=== PATIENT | male | born 1965 | race Caucasian/White ===

== ENCOUNTER 2017-05-15 00:58 | Emergency (ER) | payer BC, OTHER ==
[2017-05-15] MEDS ORDERED: Diphtheria,Pertussis(Acell),Tetanus Vaccine 0.5 ML SDV IM ONE (01:10)
[2017-05-15 01:37] VITALS: BP 135/78
--- NOTE | 2017-05-15 01:58 | EDM.PDOC ---
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 He reports he was handling and engine and there was a " yvette on the stack" while he gripped it and it dragged across his glove and cut through the glove down through the right index finger in a horseshoe shape and was relatively superficial and approximated well but was bleeding significantly. On my arrival it was a slow ooze. He denies other injuries or complaints. He reports his tetanus is not up to date. - Related Data Allergies Allergy/AdvReac Type Severity Reaction Status Date / Time ampicillin sodium Allergy Redness Verified 05/15/17 01:01 [From Unasyn] sulbactam sodium Allergy Redness Verified 05/15/17 01:01 [From Unasyn] sulfamethoxazole Allergy Redness Verified 05/15/17 01:01 [From Bactrim] trimethoprim [From Bactrim] Allergy Redness Verified 05/15/17 01:01 Home Meds: Home Meds busPIRone [Buspar] 20 mg PO BID 04/03/16 [History] Esomeprazole Magnesium [Nexium] 20 mg PO DAILY PRN 05/15/17 [History] Gluc 2KCl/Chondr/Alice Hy/Hy Ac [Glucosamine & Chondroitin Cap] 1 each PO TID [History] Vit C/Millan & Celery Ex/Grp E [Tart Millan] 1 each PO BID 05/15/17 [History] Past Medical History HEENT History: Reports: Impaired Vision Other HEENT History: He wears bifocals Cardiovascular History: Reports: None Respiratory History: Reports: Sleep Apnea, Other (See Below) Other Respiratory History: wears cpap at HS Gastrointestinal History: Reports: Cholelithiasis, Colon Polyp, Gastritis, GERD , Hiatal Hernia, PUD Other Gastrointestinal History: Upper gastric versus lower esophageal ulcer, colonic polyps of unknown type Genitourinary History: Reports: None Musculoskeletal History: Reports: Arthritis, Back Pain, Chronic, Gout, Neck Pain , Chronic, Osteoarthritis Neurological History: Reports: Headaches, Chronic, Migraines Psychiatric History: Reports: Addiction, Anxiety, Depression, PTSD Other Psychiatric History: Previous alcohol abuse with refill is a drug use as below, PTSD from service Endocrine/Metabolic History: Reports: Hypothyroidism, Obesity/BMI 30+ Other Endocrine/Metabolic History: Previous hypothyroidism with no current treatment Hematologic History: Reports: None Immunologic History: Reports: None Oncologic (Cancer) History: Reports: None Dermatologic History: Reports: None - Infectious Disease History Infectious Disease History: Reports: Chicken Pox - Past Surgical History Head Surgeries/Procedures: Reports: None HEENT Surgical History: Reports: Oral Surgery Cardiovascular Surgical History: Reports: None GI Surgical History: Reports: Cholecystectomy, Colonoscopy, Polypectomy Male Surgical History: Reports: Circumcision, Other (See Below) Oncologic Surgical History: Reports: None Dermatological Surgical History: Reports: None - Past Imaging History Past Imaging History: Reports: Sleep Study, Stress Testing Social & Family History - Tobacco Use Smoking Status *Q: Never Smoker Years of Tobacco use: 3 Packs/Tins Daily: 2 Used Tobacco, but Quit: Yes Month Tobacco Last Used: Stopped at age 30 Second Hand Smoke Exposure: No - Caffeine Use Caffeine Use: Reports: None - Alcohol Use Days Per Week of Alcohol Use: 0 (No previous DWI, however previous alcohol treatment for abuse last time at age 24) Number of Drinks Per Day: 0 Total Drinks Per Week: 0 - Recreational Drug Use Recreational Drug Use: No Drug Use in Last 12 Months: No Recreational Drug Type: Reports: Marijuana/Hashish (For about 3 years in the with last use at age 24) - Living Situation & Occupation Living situation: Reports: , , with Family Occupation: Employed ED ROS GENERAL - Review of Systems Review Of Systems: ROS reveals no pertinent complaints other than HPI. ED EXAM, SKIN/RASH Exam: See Below Exam Limited By: No Limitations General Appearance: Alert, WD/WN, No Apparent Distress Eye Exam: Bilateral Eye: EOMI, Normal Inspection, PERRL Ears: Normal External Exam, Normal Canal, Hearing Grossly Normal, Normal TMs Nose: Normal Inspection, Normal Mucosa, No Blood Throat/Mouth: Normal Inspection, Normal Lips, Normal Teeth, Normal Gums, Normal Oropharynx, Normal Voice Head: Atraumatic, Normocephalic Neck: Normal Inspection, Supple, Non-Tender, Full Range of Motion. No: Lymphadenopathy (L), Lymphadenopathy (R), Tender Lateral, Tender Midline Respiratory/Chest: No Respiratory Distress, Lungs Clear, Normal Breath Sounds, No Accessory Muscle Use, Chest Non-Tender Cardiovascular: Normal Peripheral Pulses, Regular Rate, Rhythm, No Edema, No Gallop, No Murmur, No Rub Peripheral Pulses: 2+: Radial (L), Radial (R) GI/Abdominal: Normal Bowel Sounds, Soft, Non-Tender, No Organomegaly, No Distention Back Exam: Normal Inspection, Full Range of Motion. No: CVA Tenderness (L), CVA Tenderness (R), Decreased Range of Motion, Paraspinal Tenderness, Vertebral Tenderness Extremities: Normal Inspection, Normal Range of Motion, Non-Tender, No Pedal Edema, Normal Capillary Refill Neurological: Alert, Oriented, CN II-XII Intact, Normal Cognition, Normal Gait, Normal Reflexes, No Motor/Sensory Deficits, Other (GCS 15. No pronator drift of arms. No motor or sensory deficits. No dysmetria. Tone normal. No clonus or spasticity. Babinski absent bilaterally.) Psychiatric: Normal Affect, Normal Mood Skin: Warm, Dry, Normal Color, No Rash, Other (Laceration of right distal ventral and medial finger in a horseshoe shaped laceration of 2 cm in length. Margins approximate well. Slow oozing of blood. No gross contamination. ) Course - Vital Signs Last Recorded V/S: Last Vital Signs Temp 36.3 C 05/15/17 01:28 Pulse 66 05/15/17 01:28 Resp 16 05/15/17 01:28 BP 135/78 05/15/17 01:28 Pulse Ox 95 05/15/17 01:28 - Orders/Labs/Meds Orders: Active Orders 24 hr Category Date Time Status Skin Adhesive [RC] ROUTINE Care 05/15/17 01:20 Active Vaccines to be Administered [RC] PER UNIT ROUTINE Care 05/15/17 01:11 Active Meds: Medications Discontinued Medications Generic Name Dose Route Start Last Admin Trade Name Freq PRN Reason Stop Dose Admin Diphtheria/Tetanus/Acell Pertussis 0.5 ml 05/15/17 01:10 05/15/17 01:23 Adacel IM 05/15/17 01:11 0.5 ml .ONCE ONE Administration Departure - Departure Time of Disposition: 01:58 Disposition: Home, Self-Care 01 Clinical Impression: Laceration of right index finger Qualifiers: Encounter type: initial encounter Damage to nail status: without damage Foreign body presence: without foreign body Qualified Code(s): S61.210A - Laceration without foreign body of right index finger without damage to nail, initial encounter - Discharge Information Referrals: PCP,Unknown [Primary Care Provider] - - My Orders Last 24 Hours: My Active Orders 05/15/17 01:11 Vaccines to be Administered [RC] PER UNIT ROUTINE 05/15/17 01:20 Skin Adhesive [RC] ROUTINE - Assessment/Plan Last 24 Hours: My Active Orders 05/15/17 01:11 Vaccines to be Administered [RC] PER UNIT ROUTINE 05/15/17 01:20 Skin Adhesive [RC] ROUTINE Assessment:: Laceration of right distal ventral and medial index finger, 2 cm. Plan: 1. Wound soaked in 1:2 Betadine to Sterile Saline solution. 2. Wound irrigated with same solution. 3. Dermabond closure performed with good approximation and patient tolerated well. 4. TDaP vaccination updated. 5. Shower, bathe, and swim as normal. Clean with mild soap. 6. If Dermabond had not peeled off in 10 days, may begin to peel off from the corner. 7. 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 8. Follow up with PCP if bleeding or discharge from wound, redness or pain or swelling or warmth of wound, fever > 101 F, mental status changes, or other emergent concerns.
== END 2017-05-15 02:25 | disposition home or self-care (01) ==
LOC: LL.ED 00:58
DX: S61.210A Laceration without foreign body of right index finger without damage to nail, initial encounter (principal); K21.9 Gastro-esophageal reflux disease without esophagitis; M19.90 Unspecified osteoarthritis, unspecified site; G43.909 Migraine, unspecified, not intractable, without status migrainosus; F32.9 Major depressive disorder, single episode, unspecified; F41.9 Anxiety disorder, unspecified; E03.9 Hypothyroidism, unspecified; E66.9 Obesity, unspecified; Z90.49 Acquired absence of other specified parts of digestive tract; Z88.1 Allergy status to other antibiotic agents; Z88.8 Allergy status to other drugs, medicaments and biological substances; Z88.2 Allergy status to sulfonamides; Z68.36 Body mass index [BMI] 36.0-36.9, adult; Z23 Encounter for immunization; W26.8XXA Contact with other sharp object(s), not elsewhere classified, initial encounter
CPT/HCPCS: 12001; 90715; 99282

== ENCOUNTER 2017-05-15 20:21 | Emergency (ER) | payer BC, OTHER ==
[2017-05-15] MEDS ORDERED: Ondansetron 4 MG/2 ML SDV IVPUSH ONE (20:49)
[2017-05-15] MEDS ORDERED: Sodium Chloride 0.9% 1,000 ML IV SCH (21:00)
[2017-05-15 21:17] LABS: CHLORIDE,CL 104 mmol/L (98-107); SODIUM,NA 139 mmol/L (136-145)
--- NOTE | 2017-05-15 21:48 | EDM.PDOC ---
ED HPI GENERAL MEDICAL PROBLEM - General Chief Complaint: General Stated Complaint: feeling hot, sweaty, nausea Time Seen by Provider: 05/15/17 20:50 Source of Information: Reports: Patient History Limitations: Reports: No Limitations - History of Present Illness INITIAL COMMENTS - FREE TEXT/NARRATIVE: The patient presents with complaint of episode of presyncope at home with sudden onset of weakness, lightheadedness, nausea, and diaphoresis. He reports it happened shortly after he and his came home from eating at the local [employer]. He reports he and his have recently switched to a vegetarian diet primarily with tofu, fruits, and vegetables. He reports he had eaten some meat with pizza tonight as he does rarely. He reports symptoms resolved after about 5 minutes of sitting down. He denies chest pain or shortness of breath during the spell or currently. He has a mild headache but denies visual changes , speech difficulty, facial droop, and focal weakness or numbness or paresthesias. He has mild nausea and lightheadedness currently. He denies other symptoms or complaints. He denies a history of TX, arrhythmias, PE, DVT, Stroke , or diabetes. - Related Data Allergies Allergy/AdvReac Type Severity Reaction Status Date / Time ampicillin sodium Allergy Redness Verified 05/15/17 20:23 [From Unasyn] sulbactam sodium Allergy Redness Verified 05/15/17 20:23 [From Unasyn] sulfamethoxazole Allergy Redness Verified 05/15/17 20:23 [From Bactrim] trimethoprim [From Bactrim] Allergy Redness Verified 05/15/17 20:23 Home Meds: Home Meds busPIRone [Buspar] 20 mg PO BID 04/03/16 [History] Esomeprazole Magnesium [Nexium] 20 mg PO DAILY PRN 05/15/17 [History] Gluc 2KCl/Chondr/Alice Hy/Hy Ac [Glucosamine & Chondroitin Cap] 1 each PO TID [History] Vit C/Millan & Celery Ex/Grp E [Tart Millan] 1 each PO BID 05/15/17 [History] Past Medical History HEENT History: Reports: Impaired Vision Other HEENT History: He wears bifocals Cardiovascular History: Reports: None Respiratory History: Reports: Sleep Apnea, Other (See Below) Other Respiratory History: wears cpap at HS Gastrointestinal History: Reports: Cholelithiasis, Colon Polyp, Gastritis, GERD , Hiatal Hernia, PUD Other Gastrointestinal History: Upper gastric versus lower esophageal ulcer, colonic polyps of unknown type Genitourinary History: Reports: None Musculoskeletal History: Reports: Arthritis, Back Pain, Chronic, Gout, Neck Pain , Chronic, Osteoarthritis Neurological History: Reports: Headaches, Chronic, Migraines Psychiatric History: Reports: Addiction, Anxiety, Depression, PTSD Other Psychiatric History: Previous alcohol abuse with refill is a drug use as below, PTSD from service Endocrine/Metabolic History: Reports: Hypothyroidism, Obesity/BMI 30+ Other Endocrine/Metabolic History: Previous hypothyroidism with no current treatment Hematologic History: Reports: None Immunologic History: Reports: None Oncologic (Cancer) History: Reports: None Dermatologic History: Reports: None - Infectious Disease History Infectious Disease History: Reports: Chicken Pox - Past Surgical History Head Surgeries/Procedures: Reports: None HEENT Surgical History: Reports: Oral Surgery Cardiovascular Surgical History: Reports: None GI Surgical History: Reports: Cholecystectomy, Colonoscopy, Polypectomy Male Surgical History: Reports: Circumcision, Other (See Below) Oncologic Surgical History: Reports: None Dermatological Surgical History: Reports: None - Past Imaging History Past Imaging History: Reports: Sleep Study, Stress Testing Social & Family History - Tobacco Use Smoking Status *Q: Never Smoker Years of Tobacco use: 3 Packs/Tins Daily: 2 Used Tobacco, but Quit: Yes Month Tobacco Last Used: Stopped at age 30 Second Hand Smoke Exposure: No - Caffeine Use Caffeine Use: Reports: None - Alcohol Use Days Per Week of Alcohol Use: 0 (No previous DWI, however previous alcohol treatment for abuse last time at age 24) Number of Drinks Per Day: 0 Total Drinks Per Week: 0 - Recreational Drug Use Recreational Drug Use: No Drug Use in Last 12 Months: No Recreational Drug Type: Reports: Marijuana/Hashish (For about 3 years in the with last use at age 24) - Living Situation & Occupation Living situation: Reports: , , with Family Occupation: Employed ED ROS GENERAL - Review of Systems Review Of Systems: ROS reveals no pertinent complaints other than HPI. Constitutional: Reports: Weakness (Mild and generalized, improved.), Diaphoresis (Mild, improved. ) HEENT: Reports: No Symptoms Respiratory: Reports: No Symptoms Cardiovascular: Reports: Lightheadedness (Mild, currently improved.). Denies: Chest Pain, Dyspnea on Exertion, Edema, Orthopnea, Palpitations, Syncope Endocrine: Reports: No Symptoms GI/Abdominal: Reports: Nausea (Mild and improved currently.). Denies: Diarrhea , Hematemesis, Hematochezia, Vomiting : Reports: No Symptoms Musculoskeletal: Reports: No Symptoms Skin: Reports: No Symptoms Neurological: Reports: Headache (Mild.). Denies: Confusion, Dizziness, Numbness , Paresthesia, Seizure, Syncope, Tremors, Trouble Speaking, Difficulty Walking, Weakness, Change in Speech, Gait Disturbance Psychiatric: Reports: No Symptoms Hematologic/Lymphatic: Reports: No Symptoms Immunologic: Reports: No Symptoms ED EXAM, GENERAL - Physical Exam Exam: See Below Exam Limited By: No Limitations General Appearance: Alert, WD/WN, No Apparent Distress Eye Exam: Bilateral Eye: EOMI, Normal Inspection, PERRL Ears: Normal External Exam, Normal Canal, Hearing Grossly Normal, Normal TMs Ear Exam: Bilateral Ear: Auricle Normal, Canal Normal, TM normal Nose: Normal Inspection, Normal Mucosa, No Blood Throat/Mouth: Normal Inspection, Normal Lips, Normal Teeth, Normal Gums, Normal Oropharynx Head: Atraumatic, Normocephalic Neck: Normal Inspection, Supple, Non-Tender. No: Lymphadenopathy (L), Lymphadenopathy (R), Tender Lateral, Tender Midline Respiratory/Chest: No Respiratory Distress, Lungs Clear, Normal Breath Sounds, No Accessory Muscle Use, Chest Non-Tender Cardiovascular: Normal Peripheral Pulses, Regular Rate, Rhythm, No Edema, No Gallop, No Murmur, No Rub Peripheral Pulses: 2+: Radial (L), Radial (R), Dorsalis Pedis (L), Dorsalis Pedis (R) GI/Abdominal: Normal Bowel Sounds, Soft, Non-Tender, No Distention Back Exam: Normal Inspection, Full Range of Motion. No: CVA Tenderness (L), CVA Tenderness (R), Paraspinal Tenderness, Vertebral Tenderness Extremities: Normal Inspection, Normal Range of Motion, Non-Tender, No Pedal Edema, Normal Capillary Refill. No: Pedal Edema, Derek's Sign, Leg Pain Neurological: Alert, Oriented, CN II-XII Intact, Normal Cognition, Normal Gait, Normal Reflexes, No Motor/Sensory Deficits, Other (No pronator drift of arms. No dysmetria. Tone normal. No clonus or spasticity. Babinski absent in bilateral lower extremities.). No: Confused Psychiatric: Normal Affect, Normal Mood Skin Exam: Warm, Dry, Intact, Normal Color, No Rash Lymphatic: No Adenopathy EKG INTERPRETATION EKG Date: 05/15/17 Rhythm: Other (Sinus bradycardia) Rate (Beats/Min): 59 [place]: Normal P-Wave: Present QRS: Normal ST-T: Normal QT: Normal Comparison: NA - No Prior EKG (No ST Elevation or evidence of ischemia.) Course - Vital Signs Last Recorded V/S: Last Vital Signs Temp 36.6 C 05/15/17 22:00 Pulse 59 L 05/15/17 22:00 Resp 16 05/15/17 22:00 BP 119/62 05/15/17 22:00 Pulse Ox 95 05/15/17 22:00 - Orders/Labs/Meds Orders: Active Orders 24 hr Category Date Time Status EKG Documentation Completion [RC] ASDIRECTED Care 05/15/17 20:36 Active Peripheral IV Care [RC] . DIRECTED Care 05/15/17 22:24 Active Sodium Chloride 0.9% [Normal Saline] 1,000 ml Med 05/15/17 21:00 Active IV ASDIRECTED Sodium Chloride 0.9% [Normal Saline] 250 ml Med 05/15/17 22:30 Active IV ASDIRECTED Sodium Chloride 0.9% [Saline Flush] Med 05/15/17 22:24 Active 10 ml FLUSH ASDIRECTED PRN Peripheral IV Insertion Adult [OM.PC] Routine Oth 05/15/17 21:00 Ordered EKG 12 Lead [EK] Routine Ther 05/15/17 20:32 Ordered Medication Orders Sodium Chloride (Normal Saline) 1,000 mls @ 999 mls/hr IV ASDIRECTED JAMILA Last Admin: 05/15/17 21:10 Dose: 999 mls/hr Sodium Chloride (Normal Saline) 250 mls @ 100 mls/hr IV ASDIRECTED JAMILA Last Admin: 05/15/17 22:21 Dose: 100 mls/hr Sodium Chloride (Saline Flush) 10 ml FLUSH ASDIRECTED PRN PRN Reason: Keep Vein Open Labs: Laboratory Tests 05/15/17 05/15/17 05/15/17 Range/Units 20:35 20:35 20:50 WBC 5.4 (4.0-10.2) K/uL RBC 4.24 L (4.33-5.41) M/uL Hgb 12.9 L (13.1-16.8) g/dL Hct 38.4 L (39.0-49.0) % MCV 90.6 (84.0-98.0) fL MCH 30.4 (28.2-33.3) pg MCHC 33.6 (31.7-36.0) g/dL RDW 12.5 (11.2-14.1) % Plt Count 207 (150-350) K/uL Neut % (Auto) 51.9 (45.0-80.0) % Lymph % (Auto) 32.3 (10.0-50.0) % Boyle % (Auto) 8.4 (2.0-14.0) % Eos % (Auto) 6.5 H (0.0-5.0) % Baso % (Auto) 0.9 (0.0-2.0) % Neut # (Auto) 2.78 (1.40-7.00) K/uL Lymph # (Auto) 1.73 (0.50-3.50) K/uL Boyle # (Auto) 0.45 (0.00-1.00) K/uL Eos # (Auto) 0.35 (0.00-0.50) K/uL Baso # (Auto) 0.05 (0.00-0.20) K/uL Sodium 139 (136-145) mmol/L Potassium 4.5 (3.5-5.1) mmol/L Chloride 104 (98-107) mmol/L Carbon Dioxide 29.4 (21.0-32.0) mmol/L BUN 23 H (7-18) mg/dL Creatinine 1.09 (0.51-1.17) mg/dL Est Cr Clr Drug Dosing TNP Estimated GFR (MDRD) > 60 mL/min Glucose 91 (74-106) mg/dL Calcium 8.7 (8.5-10.1) mg/dL Total Bilirubin 0.5 (0.2-1.0) mg/dL AST 22 (15-37) U/L ALT 37 (12-78) U/L Alkaline Phosphatase 82 (46-116) IU/L Creatine Kinase 250 (26-308) U/L Creatine Kinase Index 2.0 (0.0-2.5) % CK-MB (CK-2) 5.10 H* (0.00-3.60) ng/mL Troponin I 0.000 (0.000-0.056) ng/mL Total Protein 7.6 (6.4-8.2) g/dL Albumin 4.1 (3.4-5.0) g/dL Specimen Type Urincc Urine Color Yellow Urine Appearance Clear Urine pH 5.5 (5.0-9.0) Ur Specific [place] >= 1.030 (1.005-1.030) Urine Protein Negative (NEGATIVE) mg/dL Urine Glucose (UA) Negative (NEGATIVE) mg/dL Urine Ketones Negative (NEGATIVE) mg/dL Urine Occult Blood Negative (NEGATIVE) Urine Nitrite Negative (NEGATIVE) Urine Bilirubin Negative (NEGATIVE) Urine Urobilinogen 1.0 (0.2-1.0) E.U./dL Ur Leukocyte Esterase Negative (NEGATIVE) Urine RBC 0-5 /HPF Urine WBC 0-5 /HPF Ur Epithelial Cells Rare /LPF Urine Bacteria Occasional (NONE TO FEW) /HPF Urine Mucus Few H (NEGATIVE) /LPF 05/15/ Range/Units 23:35 WBC (4.0-10.2) K/uL RBC (4.33-5.41) M/uL Hgb (13.1-16.8) g/dL Hct (39.0-49.0) % MCV (84.0-98.0) fL MCH (28.2-33.3) pg MCHC (31.7-36.0) g/dL RDW (11.2-14.1) % Plt Count (150-350) K/uL Neut % (Auto) (45.0-80.0) % Lymph % (Auto) (10.0-50.0) % Boyle % (Auto) (2.0-14.0) % Eos % (Auto) (0.0-5.0) % Baso % (Auto) (0.0-2.0) % Neut # (Auto) (1.40-7.00) K/uL Lymph # (Auto) (0.50-3.50) K/uL Boyle # (Auto) (0.00-1.00) K/uL Eos # (Auto) (0.00-0.50) K/uL Baso # (Auto) (0.00-0.20) K/uL Sodium (136-145) mmol/L Potassium (3.5-5.1) mmol/L Chloride (98-107) mmol/L Carbon Dioxide (21.0-32.0) mmol/L BUN (7-18) mg/dL Creatinine (0.51-1.17) mg/dL Est Cr Clr Drug Dosing Estimated GFR (MDRD) mL/min Glucose (74-106) mg/dL Calcium (8.5-10.1) mg/dL Total Bilirubin (0.2-1.0) mg/dL AST (15-37) U/L ALT (12-78) U/L Alkaline Phosphatase (46-116) IU/L Creatine Kinase 232 (26-308) U/L Creatine Kinase Index 2.0 (0.0-2.5) % CK-MB (CK-2) 4.60 H* (0.00-3.60) ng/mL Troponin I 0.000 (0.000-0.056) ng/mL Total Protein (6.4-8.2) g/dL Albumin (3.4-5.0) g/dL Specimen Type Urine Color Urine Appearance Urine pH (5.0-9.0) Ur Specific [place] (1.005-1.030) Urine Protein (NEGATIVE) mg/dL Urine Glucose (UA) (NEGATIVE) mg/dL Urine Ketones (NEGATIVE) mg/dL Urine Occult Blood (NEGATIVE) Urine Nitrite (NEGATIVE) Urine Bilirubin (NEGATIVE) Urine Urobilinogen (0.2-1.0) E.U./dL Ur Leukocyte Esterase (NEGATIVE) Urine RBC /HPF Urine WBC /HPF Ur Epithelial Cells /LPF Urine Bacteria (NONE TO FEW) /HPF Urine Mucus (NEGATIVE) /LPF Meds: Medications Generic Name Dose Route Start Last Admin Trade Name Freq PRN Reason Stop Dose Admin Sodium Chloride 1,000 mls @ 999 mls/hr 05/15/17 21:00 05/15/17 21:10 Normal Saline IV 999 mls/hr ASDIRECTED JAMILA Administration Sodium Chloride 250 mls @ 100 mls/hr 05/15/17 22:30 05/15/17 22:21 Normal Saline IV 100 mls/hr ASDIRECTED JAMILA Administration Sodium Chloride 10 ml 05/15/17 22:24 Saline Flush FLUSH ASDIRECTED PRN Keep Vein Open Discontinued Medications Generic Name Dose Route Start Last Admin Trade Name No PRN Reason Stop Dose Admin Ondansetron HCl 4 mg 05/15/17 20:49 05/15/17 21:10 Zofran IVPUSH 05/15/17 20:50 4 mg ONETIME ONE Administration Departure - Departure Time of Disposition: 00:15 Disposition: Home, Self-Care 01 Clinical Impression: Near syncope, Dehydration, moderate - Discharge Information Instructions: Near-Syncope, [id number], Dehydration, Adult, [id number], Syncope, [id number] Referrals: Regla Laureano NP [Primary Care Provider] - Forms: ED Department Discharge Additional Instructions: 1. Serial cardiac enzymes performed and negative for TX and no chest pain or SOB during ER stay. 2. Explained to patient differential includes dehydration, early viral gastroenteritis or viral prodrome, etc. Feel cardiac etiology unlikely. 3. Zofran 4 mg IV in ER. 4. NS 1 L bolus. 5. Patient felt improved nausea and weakness and lightheadedness prior to discharge. 6. OTC acetaminophen 500-1,000 mg or ibuprofen 400-800 mg every 6 hours as needed for headache, fever, or discomfort. 7. Increase fluid intake of water and electrolyte containing fluids such as Gatorade and Powerade. Recommend at least 15 cups (3.7 Liters) of water daily. 8. Follow up with PCP next week for next available for near syncope and general health maintenance and prevention. 9. Return to ER with refractory chest pain, shortness of breath, refractory vomiting or diarrhea, blood in vomit or diarrhea, visual changes, speech difficulty, facial droop, focal weakness or numbness or tingling, mental status changes, fever > 101 F not responsive to acetaminophen or ibuprofen, or other emergent concerns. - My Orders Last 24 Hours: My Active Orders 05/15/17 20:32 EKG 12 Lead [EK] Routine 05/15/17 20:36 EKG Documentation Completion [RC] ASDIRECTED 05/15/17 21:00 Sodium Chloride 0.9% [Normal Saline] 1,000 ml IV ASDIRECTED Peripheral IV Insertion Adult [OM.PC] Routine 05/15/17 22:24 Peripheral IV Care [RC] . DIRECTED Sodium Chloride 0.9% [Saline Flush] 10 ml FLUSH ASDIRECTED PRN 05/15/17 22:30 Sodium Chloride 0.9% [Normal Saline] 250 ml IV ASDIRECTED - Assessment/Plan Last 24 Hours: My Active Orders 05/15/17 20:32 EKG 12 Lead [EK] Routine 05/15/17 20:36 EKG Documentation Completion [RC] ASDIRECTED 05/15/17 21:00 Sodium Chloride 0.9% [Normal Saline] 1,000 ml IV ASDIRECTED Peripheral IV Insertion Adult [OM.PC] Routine 05/15/17 22:24 Peripheral IV Care [RC] . DIRECTED Sodium Chloride 0.9% [Saline Flush] 10 ml FLUSH ASDIRECTED PRN 05/15/17 22:30 Sodium Chloride 0.9% [Normal Saline] 250 ml IV ASDIRECTED Assessment:: Near Syncope. Dehydration, moderate. Plan: 1. Serial cardiac enzymes performed and negative for TX and no chest pain or SOB during ER stay. 2. Explained to patient differential includes dehydration, early viral gastroenteritis or viral prodrome, etc. Feel cardiac etiology unlikely. 3. Zofran 4 mg IV in ER. 4. NS 1 L bolus. 5. Patient felt improved nausea and weakness and lightheadedness prior to discharge. 6. OTC acetaminophen 500-1,000 mg or ibuprofen 400-800 mg every 6 hours as needed for headache, fever, or discomfort. 7. Increase fluid intake of water and electrolyte containing fluids such as Gatorade and Powerade. Recommend at least 15 cups (3.7 Liters) of water daily. 8. Follow up with PCP next week for next available for near syncope and general health maintenance and prevention. 9. Return to ER with refractory chest pain, shortness of breath, refractory vomiting or diarrhea, blood in vomit or diarrhea, visual changes, speech difficulty, facial droop, focal weakness or numbness or tingling, mental status changes, fever > 101 F not responsive to acetaminophen or ibuprofen, or other emergent concerns.
[2017-05-15 22:07] VITALS: BP 119/62
[2017-05-15] MEDS ORDERED: Sodium Chloride 0.9% 10 ML Syringe FLUSH PRN (22:24)
[2017-05-15] MEDS ORDERED: Sodium Chloride 0.9% 250 ML IV SCH (22:30)
== END 2017-05-16 00:45 | disposition home or self-care (01) ==
LOC: LL.ED 20:21
DX: R55 Syncope and collapse (principal); E86.0 Dehydration; G43.909 Migraine, unspecified, not intractable, without status migrainosus; M19.90 Unspecified osteoarthritis, unspecified site; F41.9 Anxiety disorder, unspecified; Z88.1 Allergy status to other antibiotic agents; F32.9 Major depressive disorder, single episode, unspecified; E66.9 Obesity, unspecified; E03.9 Hypothyroidism, unspecified; Z88.2 Allergy status to sulfonamides; Z88.8 Allergy status to other drugs, medicaments and biological substances; Z79.899 Other long term (current) drug therapy; Z90.49 Acquired absence of other specified parts of digestive tract; Z68.36 Body mass index [BMI] 36.0-36.9, adult
CPT/HCPCS: 36415; 80053; 81001; 82550; 82553; 84484; 85025; 93005; 96361; 96374; 99284; J2405; J7030; J7050

== ENCOUNTER 2019-03-02 18:40 | Emergency (ER) | payer BC, OTHER ==
--- NOTE | 2019-03-02 18:47 | EDM.PDOC ---
ED HPI GENERAL MEDICAL PROBLEM - General Chief Complaint: Upper Extremity Injury/Pain Stated Complaint: Finger injury Time Seen by Provider: 03/02/19 18:47 Source of Information: Reports: Patient, Old Records ([facility] EMR. No paper hospital chart available.) History Limitations: Reports: No Limitations - History of Present Illness INITIAL COMMENTS - FREE TEXT/NARRATIVE: The patient was brought to the emergency room via transport vehicle from [facility] for evaluation of a Workmen's Compensation injury, which occurred at about 18: 10 hours this evening. The patient was picking up a piece of metal when he jammed it in between 2 pieces of metal with no history of foreign body or previous injury to this area. He is right-handed. Patient complains of sharp 6/ 10 pain with evidence of mild subluxation and no attempts at reduction, additional medical therapy, etc. prior to arrival. Ice packs were applied prior to arrival, however. The patient denies any chest pain/pressure, heart flutter, dizziness, orthostasis, orthopnea, diaphoresis, paresthesias, recent decreased exercise tolerance, or any other anginal-type symptoms. No recent history of abdominal pain, heartburn, nausea, diarrhea, melena, gross hematochezia, or any food intolerance, including fatty foods, etc.. The patient also denies any recent fever, cough, wheezing, dyspnea, etc.. He denies any paresthesias, neurological deficits, or other complaints or injuries. Onset: Today, Sudden Onset Date: 03/02/19 Onset Time: 18:10 Duration: Constant Location: Reports: Upper Extremity, Right. 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 Denies: Acetaminophen, NSAIDS Right Finger-Ring Pain Score (Numeric/FACES): 6 - Related Data Allergies Allergy/AdvReac Type Severity Reaction Status Date / Time ampicillin sodium Allergy Redness Verified 03/02/19 18:42 [From Unasyn] sulbactam sodium Allergy Redness Verified 03/02/19 18:42 [From Unasyn] sulfamethoxazole Allergy Redness Verified 03/02/19 18:42 [From Bactrim] trimethoprim [From Bactrim] Allergy Redness Verified 03/02/19 18:42 Home Meds: Home Meds busPIRone [Buspar] 40 mg PO BID 04/03/16 [History] Omeprazole 20 mg PO ONETIME 03/02/19 [History] Past Medical History HEENT History: Reports: Impaired Vision. Denies: Allergic Rhinitis, Cataract, Glaucoma, Hard of Hearing, Macular Degeneration, Otitis Media, Retinal Detachment Other HEENT History: He wears bifocals Cardiovascular History: Reports: Syncope, Other (See Below). Denies: Afib, Aneurysm, Arrhythmia, Blood Clots/VTE/DVT, CAD, Heart Failure, Heart Murmur, High Cholesterol, Hypertension, DC, PVD Other Cardiovascular History: Near syncopal episode on 05/15/17 secondary to probable dehydration. Respiratory History: Reports: Sleep Apnea, Other (See Below). Denies: Asthma, Bronchitis, Recurrent, COPD, Intubation, Difficult, Intubation, Previous, PE, Pneumonia, Recurrent, Pneumothorax, Pulmonary Fibrosis, TB Other Respiratory History: He has been compliant with his CPAP. Benign 3 millimeter left upper lobe pulmonary nodule with additional bilateral benign granulomas by CT scan on 08/02/18. Gastrointestinal History: Reports: Cholelithiasis, Colon Polyp, Gastritis, GERD , Hemorrhoids, Hiatal Hernia, PUD. Denies: Celiac Disease, Chronic Constipation , Chronic Diarrhea, Fecal Incontinence, Hepatitis, Inflammatory Bowel Disease, Irritable Bowel Syndrome, Jaundice, Pancreatitis Other Gastrointestinal History: Upper gastric versus lower esophageal ulcer, colonic polyps of unknown type Genitourinary History: Reports: None. Denies: Acute Renal Failure, BPH, Chronic Renal Insuffiency, Renal Calculus, Retention, Urinary, STD, Urinary Incontinence, UTI, Recurrent Musculoskeletal History: Reports: Arthritis, Back Pain, Chronic, Gout, Neck Pain , Chronic, Osteoarthritis, Other (See Below). 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 Neurological History: Reports: Headaches, Chronic, Migraines, Other (See Below) . Denies: Cerebral Aneurysms, Concussion, CVA, Head Trauma, MS, Neuropathy, Peripheral, Parkinson's, Seizure, TIA Other Neuro History: Tension headaches Psychiatric History: Reports: Addiction, Anxiety, Depression, PTSD. Denies: Abuse, Victim of, ADD, ADHD, Psych Hospitalization(s), Suicide Attempt Other Psychiatric History: Previous alcohol abuse with illicit drug use as below , PTSD from service Endocrine/Metabolic History: Reports: Hypothyroidism, Obesity/BMI 30+. Denies: Diabetes, Type I, Diabetes, Type II, Diabetes Mellitus, Type 3c, IDDM Other Endocrine/Metabolic History: Previous hypothyroidism with no current treatment Hematologic History: Reports: None. Denies: Anemia, Blood Transfusion(s), Iron Deficiency Immunologic History: Reports: None. Denies: AIDS, HIV, SLE Oncologic (Cancer) History: Reports: None. Denies: Basal Cell Carcinoma, Colon , Hodgkin's Lymphoma, Leukemia, Lymphoma, Malignant Melanoma, Non-Hodgkin's Lymphoma, Prostate, Squamous Cell Carcinoma Dermatologic History: Reports: None. Denies: Eczema, Psoriasis - Infectious Disease History Infectious Disease History: Reports: Chicken Pox. Denies: C-Difficile, Measles , Meningitis, Mononucleosis, MRSA, Mumps, Pertussis (Whooping Cough), Rheumatic Fever, Rubella, Scarlet Fever, Shingles, TB, VRE - Past Surgical History Head Surgeries/Procedures: Reports: None HEENT Surgical History: Reports: Oral Surgery, Other (See Below). Denies: Adenoidectomy, Cataract Surgery, Eye Surgery, Laser Surgery, LASIK, Myringotomy w Tube(s), Naso-Sinus Surgery, Tonsillectomy Other HEENT Surgeries/Procedures: Multiple previous teeth extractions. Cardiovascular Surgical History: Reports: None. Denies: Varicose Respiratory Surgical History: Reports: None. Denies: Thoracentesis GI Surgical History: Reports: Cholecystectomy, Colonoscopy, Polypectomy, Other ( See Below). Denies: Appendectomy, EGD, Hernia, Abdominal, Hernia, Inguinal Other GI Surgeries/Procedures: Colonoscopy in about 2009 with polypectomy of unknown type. Laparoscopic cholecystectomy in 2004. Hemorrhoidectomy with colonoscopy in 2009 as above. Male Surgical History: Reports: Circumcision, Other (See Below) Other Male Surgeries/Procedures: Circumcision as an . Endocrine Surgical History: Reports: None. Denies: Thyroid Biopsy Neurological Surgical History: Reports: None. Denies: C-Spine, Discectomy, Laminectomy, Lumbar Spine, Sacral Spine, Spinal Fusion, Thoracic Spine, Vertebroplasty Musculoskeletal Surgical History: Reports: None. Denies: Arthroscopic Procedure , Carpal Tunnel, Ganglion Cyst, Joint Replacement, ORIF, Shoulder Surgery Oncologic Surgical History: Reports: None Dermatological Surgical History: Reports: None - Past Imaging History Past Imaging History: Reports: Carotid US (05/22/17), CAT Scan (CT scan of the chest with contrast on 08/02/18 with findings as above. CT of the head on .), Sleep Study (Last sleep study in 2010), Stress Testing (2011), Ultrasound (Soft tissue ultrasound of the right wrist on 08/31/17.) Social & Family History - Tobacco Use Smoking Status *Q: Former Smoker Tobacco Use Within Last Twelve Months: No Years of Tobacco use: 3 Packs/Tins Daily: 2 Packs/Tins Daily Comment: Stop smoking at age 30. Used Tobacco, but Quit: Yes Smoking Cessation Information Provided To Patient: No Second Hand Smoke Exposure: No Second Hand Smoke Education Provided: No - Caffeine Use Caffeine Use: Reports: Energy Drinks (1 can every other week). Denies: Coffee, Soda, Tea - Alcohol Use Alcohol Use History: Yes Days Per Week of Alcohol Use: 0 Number of Drinks Per Day: 0 Number of Drinks Per Day Comment: History of alcohol abuse and treatment last at age 24. No previous DWI. Total Drinks Per Week: 0 Alcohol Use in Last Twelve Months: No - Recreational Drug Use Drug Use in Last 12 Months: No Recreational Drug Type: Reports: Marijuana/Hashish (For about 3 years in the with last use at age 24). Denies: Amphetamines (Speed), Cocaine, Heroin, Inhalants (Glues, Solvents, Aerosols), LSD (Acid), Methamphetamine, Morphine, Oxycodone - Living Situation & Occupation Living situation: Reports: (2004 to second with 2 children from this marriage.), (First marriage ended in divorce with 6 children from that marriage), with Family Occupation: Employed ([employer]) Review of Systems - Review of Systems Review Of Systems: ROS reveals no pertinent complaints other than HPI. ED EXAM, GENERAL - Physical Exam Exam: See Below Exam Limited By: No Limitations General Appearance: Alert, WD/WN, No Apparent Distress Head: Atraumatic, Normocephalic Neck: Normal Inspection, Supple, Non-Tender, Full Range of Motion. No: Lymphadenopathy (L), Lymphadenopathy (R), Thyromegaly Respiratory/Chest: No Respiratory Distress, Lungs Clear, Normal Breath Sounds, No Accessory Muscle Use, Chest Non-Tender. No: Pleural Rub, Retractions Cardiovascular: Normal Peripheral Pulses, Regular Rate, Rhythm, No Edema, No Gallop, No JVD, No Murmur, No Rub. No: Gallop/S3, Gallop/S4, Friction Rub Peripheral Pulses: 2+: Radial (L), Radial (R) GI/Abdominal: Normal Bowel Sounds, Soft, Non-Tender, No Organomegaly, No Distention, No Abnormal Bruit, No Mass, Pelvis Stable, Other (Obese). No: Guarding (Male) Exam: Deferred Rectal (Males) Exam: Deferred Back Exam: Normal Inspection, Full Range of Motion. No: CVA Tenderness (L), CVA Tenderness (R), Muscle Spasm Extremities: Normal Capillary Refill, Joint Swelling (Minimal at DIP joint of fourth right finger with evidence of mild subluxation but no crepitation, deformity, or evidence of fracture), Limited Range of Motion (Mild at DIP joint as above). No: Non-Tender (Mild tenderness at fourth DIP of the right hand) Neurological: Alert, Oriented, CN II-XII Intact, Normal Cognition, Normal Gait, No Motor/Sensory Deficits Psychiatric: Normal Affect, Normal Mood Skin Exam: Warm, Dry, Intact, Normal Color, No Rash. No: Diaphoretic, Wound/ Incision Lymphatic: No Adenopathy ED TRAUMA EXTREMITY PROCEDURES - Joint Reduction Site: Finger (R) Sedation: Other (None) Local Anesthesia - Lidocaine (Xylocaine): Other (None) Pre-Procedure NV Status: Normal Post-Procedure NV Status: Normal Technique: Traction/Counter Traction Number of Attempts: 1 Post-Reduction Imaging: Acceptably Reduced, No Fracture Seen Joint Reduction Complications: No - Splinting Right Upper Extremity Pre-Procedure NV Status: Normal Post-Procedure NV Status: Normal Splint Material: Aluminum-Foam Splint Design: Extensor (/Flexion), Other (3-hole padded) Applied & Form Fitted By: Nurse Provider Post-Splint Application NV Check: NV Status Normal, Good Position Complications: No Course - Vital Signs Last Recorded V/S: Last Vital Signs Temp 36.9 C 03/02/19 18:48 Pulse 72 03/02/19 18:48 Resp 14 03/02/19 18:48 BP 132/68 03/02/19 18:48 Pulse Ox 96 03/02/19 18:48 Vital Signs - 24 hr 03/02/19 18:48 Temperature [ 36.9 C Temporal] Pulse, 72 Peripheral [ Right Pulse Oximetry] Respiratory 14 Rate Blood Pressure 132/68 [Right Upper Arm] O2 Sat by Pulse 96 Oximetry - Orders/Labs/Meds Orders: Active Orders 24 hr Category Date Time Status Fingers Fourth Digit Rt F8 [CR] Stat Exams 03/02/19 18:51 Taken Fingers Fourth Digit Rt F8 [CR] Stat Exams 03/02/19 19:26 Taken Durable Medical Equipment for Discharge [DME for Oth 03/02/19 19:37 Ordered Discharge] [COMM] Routine Obtain Past Medical Record [OM.PC] Routine Oth 03/02/19 18:50 Active Labs: None Meds: None - Radiology Interpretation Free Text/Narrative:: X-rays of the fourth right finger, 3 views, shows evidence of a mild subluxation at the DIP joint with no evidence of fracture. X-rays of the fourth right finger, 3 views?postreduction, shows only minimal improvement of previous subluxation with no fracture noted Departure - Departure Time of Disposition: 19:50 Disposition: Home, Self-Care 01 Condition: Good Clinical Impression: Peptic reflux disease, Mixed anxiety depressive disorder Subluxation of finger Qualifiers: Encounter type: initial encounter Qualified Code(s): S63.209A - Unspecified subluxation of unspecified finger, initial encounter Osteoarthritis Qualifiers: Osteoarthritis location: multiple joints Osteoarthritis type: primary Qualified Code(s): M15.0 - Primary generalized (osteo)arthritis Sleep apnea Qualifiers: Sleep apnea type: unspecified type Qualified Code(s): G47.30 - Sleep apnea, unspecified - Discharge Information *PRESCRIPTION DRUG MONITORING PROGRAM REVIEWED*: Not Applicable *COPY OF PRESCRIPTION DRUG MONITORING REPORT IN PATIENT MYRON: Not Applicable Instructions: Finger or Thumb Dislocation, [id number], Cast or Splint Care, Adult, [id number] Referrals: Karime Aly PA [Primary Care Provider] - Forms: ED Department Discharge Additional Instructions: 1. Followup with your regular provider in 7 days as directed for reevaluation and recommended repeat x-ray of your fourth right finger. Bring these discharge instructions with you to that visit. 2. Tylenol 650 mg by mouth every 4 hours and/or OTC ibuprofen 2-3 tabs by mouth every 6 hours with food as directed./needed. You may stagger these medications for 48-72 hours only, which essentially means that you are receiving a pain medication about every 2 hours. 3. Work excuse- See Form 4. Finger splint is to be worn at all times until otherwise directed by your regular provider as discussed 5. Immediately after this visit verify that your cellular telephone's voicemail has been activated and is empty. Also verify that your home telephone 's answering machine is operating properly and has space to receive messages. Note that it is sometimes necessary for us to be able to contact you at a later date to discuss your medical care. 6. Please remember that we are ALWAYS here for you and want to answer any questions you may have. Feel free to call the hospital any time and we call you back IGLES[place]. - Problem List & Annotations (1) Subluxation of finger SNOMED Code(s): 335925196 Code(s): S63.209A - UNSPECIFIED SUBLUXATION OF UNSPECIFIED FINGER, INIT ENCNTR Status: Acute Priority: High Current Visit: Yes Onset Date: 03/02 Annotation/Comment:: Mild DIP finger subluxation as above with no evidence of fracture. Despite minimal improvement with postreduction films patient did have significant medical improvement with my reduction. Compliance with finger splint encouraged. Workmen's Compensation and [employer] work excuse forms were completed. Close follow-up by regular provider as per discharge instructions. Activity restrictions, etc. discussed. Qualifiers: Encounter type: initial encounter Qualified Code(s): S63.209A - Unspecified subluxation of unspecified finger, initial encounter (2) Osteoarthritis SNOMED Code(s): 064096704 Code(s): M19.90 - UNSPECIFIED OSTEOARTHRITIS, UNSPECIFIED SITE Status: Chronic Priority: Low Current Visit: Yes Annotation/Comment:: Otherwise Stable by history Qualifiers: Osteoarthritis location: multiple joints Osteoarthritis type: primary Qualified Code(s): M15.0 - Primary generalized (osteo)arthritis (3) Sleep apnea SNOMED Code(s): 72806763 Code(s): G47.30 - SLEEP APNEA, UNSPECIFIED Status: Chronic Priority: Medium Current Visit: Yes Annotation/Comment:: Patient has been compliant with his CPAP. No recent fever or bronchitic-type symptoms. Qualifiers: Sleep apnea type: unspecified type Qualified Code(s): G47.30 - Sleep apnea , unspecified (4) Peptic reflux disease SNOMED Code(s): 542433636 Code(s): K21.9 - GASTRO-ESOPHAGEAL REFLUX DISEASE WITHOUT ESOPHAGITIS Status: Chronic Priority: Medium Current Visit: Yes Annotation/Comment:: Stable by history with no current medical therapy (5) Mixed anxiety depressive disorder SNOMED Code(s): 074289184 Code(s): F41.8 - OTHER SPECIFIED ANXIETY DISORDERS Status: Chronic Priority: Medium Current Visit: Yes Annotation/Comment:: Stable by history. Note distant history of alcohol abuse. - Problem List Review Problem List Initiated/Reviewed/Updated: Yes - My Orders Last 24 Hours: My Active Orders 03/02/19 18:50 Obtain Past Medical Record [OM.PC] Routine 03/02/19 18:51 Fingers Fourth Digit Rt F8 [CR] Stat 03/02/19 19:26 Fingers Fourth Digit Rt F8 [CR] Stat 03/02/19 19:37 Durable Medical Equipment for Discharge [DME for Discharge] [COMM] Routine - Assessment/Plan Last 24 Hours: My Active Orders 03/02/19 18:50 Obtain Past Medical Record [OM.PC] Routine 03/02/19 18:51 Fingers Fourth Digit Rt F8 [CR] Stat 03/02/19 19:26 Fingers Fourth Digit Rt F8 [CR] Stat 03/02/19 19:37 Durable Medical Equipment for Discharge [DME for Discharge] [COMM] Routine Assessment:: As above Plan: As above.
[2019-03-02 18:49] VITALS: BP 132/68; PULSE 72
== END 2019-03-02 19:50 | disposition home or self-care (01) ==
LOC: LL.ED 18:40
DX: S63.24 Subluxation of distal interphalangeal joint of finger (principal); K21.9 Gastro-esophageal reflux disease without esophagitis; F41.8 Other specified anxiety disorders; M15.0 Primary generalized (osteo)arthritis; G47.30 Sleep apnea, unspecified; W23.0XXA Caught, crushed, jammed, or pinched between moving objects, initial encounter; Y99.0 Civilian activity done for income or pay
CPT/HCPCS: 26770; 73140-F8; 99283-25

== ENCOUNTER 2019-11-08 16:38 | Emergency (ER) | payer BC, OTHER ==
--- NOTE | 2019-11-08 16:43 | EDM.PDOC ---
ED HPI GENERAL MEDICAL PROBLEM - General Chief Complaint: General Stated Complaint: fall at work, lower back pain Time Seen by Provider: 11/08/19 16:38 Source of Information: Reports: Patient, Old Records ([facility] chart/EMR) History Limitations: Reports: No Limitations - History of Present Illness INITIAL COMMENTS - FREE TEXT/NARRATIVE: The patient drove himself to the emergency room via private automobile for evaluation of a Workmen's Compensation injury, which occurred at about 21:00 hours yesterday evening. The patient was talking with someone when he stepped backwards and caught his heel on an object falling onto his low back and sacrum. He did not have any immediate pain or discomfort and was able to complete his shift and normal work duties without difficulties. He did notify his ruben about the fall and injury yesterday evening with his ruben today sending him to the emergency room for further evaluation at this time. Note that the patient did not have any significant discomfort until he woke up this morning at about 07:45 AM with the patient rating his low back discomfort at 7/ 10. The patient did take 800 mg of ibuprofen earlier this morning with some improvement of his symptoms. No other topical treatment to this point. He denies any head injury, loss of consciousness, change in mental status, neurological deficits, or other complaints or injuries. The patient denies any chest pain/pressure, heart flutter, dizziness, orthostasis, orthopnea, diaphoresis, paresthesias, recent decreased exercise tolerance, or any other anginal-type symptoms. No recent history of abdominal pain, heartburn, nausea, diarrhea, melena, gross hematochezia, or any food intolerance, including fatty foods, etc., although he did have some mild intestinal flu last week. The patient also denies any recent fever, cough, wheezing, dyspnea, etc.. Onset: Sudden Onset Date: 11/07/19 Onset Time: 21:00 Duration: Constant Location: Reports: Back. 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 (As above) Right Lower Back Pain Score (Numeric/FACES): 7 lower back/tail bone Pain Score (Numeric/FACES): 7 - Related Data Allergies Allergy/AdvReac Type Severity Reaction Status Date / Time ampicillin sodium Allergy Redness Verified 11/08/19 16:45 [From Unasyn] sulbactam sodium Allergy Redness Verified 11/08/19 16:45 [From Unasyn] sulfamethoxazole Allergy Redness Verified 11/08/19 16:45 [From Bactrim] trimethoprim [From Bactrim] Allergy Redness Verified 11/08/19 16:45 Home Meds: Home Meds Omeprazole 20 mg PO DAILY PRN 03/02/19 [History] Cyclobenzaprine [Flexeril] 10 mg PO TID PRN #30 tab 11/08/19 [Rx] Glucosam/Chond/Collagen/Hyalur [Glucosamine Chondroitin] 1 cap PO TID 11/08/19 [ History] Multivitamin [Daily Multiple Vitamin] 1 each PO DAILY 11/08/19 [History] Non-Formulary Medication [NF Drug] 1 cap PO DAILY 11/08/19 [History] busPIRone [Buspar] 10 mg PO BID 11/08/19 [History] Past Medical History HEENT History: Reports: Impaired Vision. Denies: Allergic Rhinitis, Cataract, Glaucoma, Hard of Hearing, Macular Degeneration, Otitis Media, Retinal Detachment Other HEENT History: He wears bifocals Cardiovascular History: Reports: Syncope, Other (See Below). Denies: Afib, Aneurysm, Arrhythmia, Blood Clots/VTE/DVT, CAD, Heart Failure, Heart Murmur, High Cholesterol, Hypertension, SD, PVD Other Cardiovascular History: Near syncopal episode on 05/15/17 secondary to probable dehydration. Respiratory History: Reports: Sleep Apnea, Other (See Below). Denies: Asthma, Bronchitis, Recurrent, COPD, Intubation, Difficult, Intubation, Previous, PE, Pneumonia, Recurrent, Pneumothorax, Pulmonary Fibrosis, TB Other Respiratory History: He has been compliant with his CPAP. Benign 3 millimeter left upper lobe pulmonary nodule with additional bilateral benign granulomas by CT scan on 08/02/18. Gastrointestinal History: Reports: Cholelithiasis, Colon Polyp, Gastritis, GERD , Hemorrhoids, Hiatal Hernia, PUD. Denies: Celiac Disease, Chronic Constipation , Chronic Diarrhea, Fecal Incontinence, Hepatitis, Inflammatory Bowel Disease, Irritable Bowel Syndrome, Jaundice, Pancreatitis Other Gastrointestinal History: Upper gastric versus lower esophageal ulcer, colonic polyps of unknown type Genitourinary History: Reports: None. Denies: Acute Renal Failure, BPH, Chronic Renal Insuffiency, Renal Calculus, Retention, Urinary, STD, Urinary Incontinence, UTI, Recurrent Musculoskeletal History: Reports: Arthritis, Back Pain, Chronic, Gout, Neck Pain , Chronic, Osteoarthritis, Other (See Below). Denies: Fracture, RA, SLE Other Musculoskeletal History: Distal phalangeal subluxation with avulsion fractions of the proximal distal phalanx and distal middle phalanx of digit #4 of the right hand with secondary mallet formation. In addition previous tendon laceration digit #3 of the left hand at age 13 resulting in a mallet formation of the distal phalanx. 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 Neurological History: Reports: Headaches, Chronic, Migraines, Other (See Below) . Denies: Cerebral Aneurysms, Concussion, CVA, Head Trauma, MS, Neuropathy, Peripheral, Parkinson's, Seizure, TIA Other Neuro History: Tension headaches Psychiatric History: Reports: Addiction, Anxiety, Depression, Psych Hospitalization(s), PTSD. Denies: Abuse, Victim of, ADD, ADHD, Suicide Attempt Other Psychiatric History: Previous alcohol abuse with illicit drug use as below with previous alcohol treatment, PTSD from service Endocrine/Metabolic History: Reports: Hypothyroidism, Obesity/BMI 30+. Denies: Diabetes, Type I, Diabetes, Type II, Diabetes Mellitus, Type 3c, IDDM Other Endocrine/Metabolic History: Previous hypothyroidism with no current treatment Hematologic History: Reports: None. Denies: Anemia, Blood Transfusion(s), Iron Deficiency Immunologic History: Reports: None. Denies: AIDS, HIV, SLE Oncologic (Cancer) History: Reports: None. Denies: Basal Cell Carcinoma, Colon , Hodgkin's Lymphoma, Leukemia, Lymphoma, Malignant Melanoma, Non-Hodgkin's Lymphoma, Prostate, Squamous Cell Carcinoma Dermatologic History: Reports: None. Denies: Eczema, Psoriasis - Infectious Disease History Infectious Disease History: Reports: Chicken Pox. Denies: C-Difficile, Measles , Meningitis, Mononucleosis, MRSA, Mumps, Pertussis (Whooping Cough), Rheumatic Fever, Rubella, Scarlet Fever, Shingles, TB, VRE - Past Surgical History Head Surgeries/Procedures: Reports: None HEENT Surgical History: Reports: Oral Surgery, Other (See Below). Denies: Adenoidectomy, Cataract Surgery, Eye Surgery, Laser Surgery, LASIK, Myringotomy w Tube(s), Naso-Sinus Surgery, Tonsillectomy Other HEENT Surgeries/Procedures: Multiple previous teeth extractions. Cardiovascular Surgical History: Reports: None. Denies: Varicose Respiratory Surgical History: Reports: None. Denies: Thoracentesis GI Surgical History: Reports: Cholecystectomy, Colonoscopy, Polypectomy, Other ( See Below). Denies: Appendectomy, EGD, Hernia, Abdominal, Hernia, Inguinal Other GI Surgeries/Procedures: Last colonoscopy at the [facility] in [place] in 2016 with previous Colonoscopy in about 2009 with polypectomy of unknown type. Laparoscopic cholecystectomy in 2004. Hemorrhoidectomy with colonoscopy in 2009 as above. Male Surgical History: Reports: Circumcision, Other (See Below). Denies: TURP-Transurethral Resection of Prostate, Vasectomy Other Male Surgeries/Procedures: Circumcision as an infant. Endocrine Surgical History: Reports: None. Denies: Thyroid Biopsy Neurological Surgical History: Reports: None. Denies: C-Spine, Discectomy, Laminectomy, Lumbar Spine, Sacral Spine, Spinal Fusion, Thoracic Spine, Vertebroplasty Musculoskeletal Surgical History: Reports: None. Denies: Arthroscopic Procedure , Carpal Tunnel, Ganglion Cyst, Joint Replacement, ORIF, Shoulder Surgery Oncologic Surgical History: Reports: None Dermatological Surgical History: Reports: None - Past Imaging History Past Imaging History: Reports: Carotid US (05/22/17), CAT Scan (CT scan of the chest with contrast on 08/02/18 with findings as above. CT of the head on .), Sleep Study (Last sleep study in 2010), Stress Testing (2011), Ultrasound (Soft tissue ultrasound of the right wrist on 08/31/17.) Social & Family History - Tobacco Use Smoking Status *Q: Former Smoker Tobacco Use Within Last Twelve Months: No Years of Tobacco use: 3 Packs/Tins Daily: 2 Packs/Tins Daily Comment: Stopped Smoking at age 30. Used Tobacco, but Quit: Yes Smoking Cessation Information Provided To Patient: No Second Hand Smoke Exposure: No Second Hand Smoke Education Provided: No - Caffeine Use Caffeine Use: Reports: None. Denies: Coffee, Energy Drinks, Soda, Tea - Alcohol Use Alcohol Use History: Yes Days Per Week of Alcohol Use: 0 Number of Drinks Per Day Comment: History of alcohol abuse and treatment lasted age 24. No Previous DWI. Alcohol Use in Last Twelve Months: No - Recreational Drug Use Recreational Drug Use: Yes Drug Use in Last 12 Months: No Recreational Drug Type: Reports: Marijuana/Hashish (For about 3 years in the with last use at age 24.). 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 ED EXAM, GENERAL - Physical Exam Exam: See Below Exam Limited By: No Limitations General Appearance: Alert, WD/WN, No Apparent Distress, Anxious (Mild) Head: Atraumatic, Normocephalic. No: Facial Swelling, Facial Tenderness, Sinus Tenderness Neck: Normal Inspection, Supple, Non-Tender, Full Range of Motion. No: Lymphadenopathy (L), Lymphadenopathy (R), Thyromegaly Respiratory/Chest: No Respiratory Distress, Lungs Clear, Normal Breath Sounds, No Accessory Muscle Use, Chest Non-Tender. No: Pleural Rub, Retractions Cardiovascular: Normal Peripheral Pulses, Regular Rate, Rhythm, No Edema, No Gallop, No JVD, No Murmur, No Rub. No: Gallop/S3, Gallop/S4, Friction Rub Peripheral Pulses: 2+: Radial (L), Radial (R) GI/Abdominal: Normal Bowel Sounds, Soft, Non-Tender, No Organomegaly, No Distention, No Abnormal Bruit, No Mass, Pelvis Stable, Other (Obese). No: Guarding (Male) Exam: Deferred Rectal (Males) Exam: Deferred Back Exam: Full Range of Motion, Muscle Spasm (Moderate right lower paraspinal muscle spasms with mild localized tenderness with no ecchymosis, crepitation, etc.), Paraspinal Tenderness (As above). No: CVA Tenderness (L), CVA Tenderness (R), Vertebral Tenderness Extremities: Normal Range of Motion, Non-Tender, No Pedal Edema, Other (Stable mallet deformities of the distal phalanx of digit #4 of the right hand digit #3 of the left hand). No: Derek's Sign Neurological: Alert, Oriented, CN II-XII Intact, Normal Cognition, Normal Gait, No Motor/Sensory Deficits Psychiatric: Anxious (Mild). No: Depressed Mood Skin Exam: Warm, Dry, Intact, Normal Color, No Rash. No: Diaphoretic, Wound/ Incision Lymphatic: No Adenopathy Course - Vital Signs Last Recorded V/S: Last Vital Signs Temp 36.1 C 11/08/19 16:39 Pulse 63 11/08/19 16:39 Resp 18 11/08/19 16:39 BP 136/79 11/08/19 16:39 Pulse Ox 96 11/08/19 16:39 - Orders/Labs/Meds Orders: Active Orders 24 hr Category Date Time Status Lumbar Spine Min 4V [CR] Stat Exams 11/08/19 16:43 Ordered Sacrum Coccyx Min 2V [CR] Stat Exams 11/08/19 16:43 Ordered Obtain Past Medical Record [OM.PC] Routine Oth 11/08/19 16:43 Active Labs: None Meds: None - Radiology Interpretation Free Text/Narrative:: X-rays of the lumbar spine, complete including obliques, shows moderate osteoarthritic changes with no significant decreased lordosis however some borderline old beginning vertebral body compressions with no evidence of acute fracture, dislocation, etc. X-rays of the sacral spine, complete, shows no evidence of fracture, dislocation , etc. Departure - Departure Time of Disposition: 17:35 Disposition: Home, Self-Care 01 Condition: Good Clinical Impression: Peptic reflux disease, Mixed anxiety depressive disorder Low back sprain Qualifiers: Encounter type: initial encounter Qualified Code(s): S33.5XXA - Sprain of ligaments of lumbar spine, initial encounter Sacral contusion Qualifiers: Encounter type: initial encounter Qualified Code(s): S30.0XXA - Contusion of lower back and pelvis, initial encounter Osteoarthritis Qualifiers: Osteoarthritis location: multiple joints Osteoarthritis type: primary Qualified Code(s): M15.0 - Primary generalized (osteo)arthritis - Discharge Information *PRESCRIPTION DRUG MONITORING PROGRAM REVIEWED*: Not Applicable *COPY OF PRESCRIPTION DRUG MONITORING REPORT IN PATIENT MYRON: Not Applicable Prescriptions: Cyclobenzaprine [Flexeril] 10 mg PO TID PRN #30 tab PRN Reason: Spasms Instructions: Lumbar Sprain Referrals: PCP,None [Primary Care Provider] - Forms: ED Department Discharge Additional Instructions: 1. Follow up with your regular provider in 10-14 days as needed, if symptoms persist. Bring these discharge instructions with you to that visit.. 2. Tylenol 650 mg by mouth every 4 hours and/or OTC ibuprofen 2-3 tabs by mouth every 6 hours with food as directed./needed. You may stagger these medications for 48-72 hours only, which essentially means that you are receiving a pain medication about every 2 hours. 3. BenGay or equivalent, heating pad, and/or ice packs as directed. 4. Sedation precautions with Flexeril as discussed. 5. Work excuse- See Form 6. Activity restrictions as discussed. 7. Immediately after this visit verify that your cellular telephone's voicemail has been activated and is empty. Also verify that your home telephone 's answering machine is operating properly and has space to receive messages. Note that it is sometimes necessary for us to be able to contact you at a later date to discuss your medical care. 8. Please remember that we are ALWAYS here for you and want to answer any questions you may have. Feel free to call the hospital any time and we call you back [place]. Sepsis Event Note - Focused Exam Vital Signs: Vital Signs Temp Pulse Resp BP Pulse Ox 11/08/19 16:39 36.1 C 63 18 136/79 96 Date Exam was Performed: 11/08/19 Time Exam was Performed: 17:11 - Problem List & Annotations (1) Low back sprain SNOMED Code(s): 855855885 Code(s): S33.5XXA - SPRAIN OF LIGAMENTS OF LUMBAR SPINE, INITIAL ENCOUNTER Status: Acute Priority: High Current Visit: Yes Onset Date: 11/08/19 Annotation/Comment:: Minor right low back sprain with dramatic relief as per discharge instructions. Additional Flexeril therapy with sedation, precautions given. Workmen's Compensation and [employer] work excuse forms were completed. Qualifiers: Encounter type: initial encounter Qualified Code(s): S33.5XXA - Sprain of ligaments of lumbar spine, initial encounter (2) Sacral contusion SNOMED Code(s): 801518011 Code(s): S30.0XXA - CONTUSION OF LOWER BACK AND PELVIS, INITIAL ENCOUNTER Status: Acute Priority: High Current Visit: Yes Onset Date: 11/08/19 Annotation/Comment:: Minor sacral contusion without evidence of fracture. Symptomatic relief as above. Qualifiers: Encounter type: initial encounter Qualified Code(s): S30.0XXA - Contusion of lower back and pelvis, initial encounter (3) Mixed anxiety depressive disorder SNOMED Code(s): 986115793 Code(s): F41.8 - OTHER SPECIFIED ANXIETY DISORDERS Status: Chronic Priority: Medium Current Visit: Yes Annotation/Comment:: Stable by history. Note distant history of alcohol abuse. (4) Osteoarthritis SNOMED Code(s): 061213641 Code(s): M19.90 - UNSPECIFIED OSTEOARTHRITIS, UNSPECIFIED SITE Status: Chronic Priority: Medium Current Visit: Yes Annotation/Comment:: Otherwise Stable by history Qualifiers: Osteoarthritis location: multiple joints Osteoarthritis type: primary Qualified Code(s): M15.0 - Primary generalized (osteo)arthritis (5) Peptic reflux disease SNOMED Code(s): 502620201 Code(s): K21.9 - GASTRO-ESOPHAGEAL REFLUX DISEASE WITHOUT ESOPHAGITIS Status: Chronic Priority: Medium Current Visit: Yes Annotation/Comment:: Stable by history with current medical therapy - Problem List Review Problem List Initiated/Reviewed/Updated: Yes - My Orders Last 24 Hours: My Active Orders 11/08/19 16:43 Lumbar Spine Min 4V [CR] Stat Sacrum Coccyx Min 2V [CR] Stat Obtain Past Medical Record [OM.PC] Routine - Assessment/Plan Last 24 Hours: My Active Orders 11/08/19 16:43 Lumbar Spine Min 4V [CR] Stat Sacrum Coccyx Min 2V [CR] Stat Obtain Past Medical Record [OM.PC] Routine Assessment:: As above Plan: As above. Extensive precautions were given to the patient, who is in agreement with the treatment plan. See Patient Instructions for further treatment and plan.
[2019-11-08 16:44] VITALS: BP 136/79; PULSE 63
== END 2019-11-08 17:40 | disposition home or self-care (01) ==
LOC: LL.ED 16:38
DX: S33.5XXA Sprain of ligaments of lumbar spine, initial encounter (principal); K21.9 Gastro-esophageal reflux disease without esophagitis; F41.8 Other specified anxiety disorders; M89.49 Other hypertrophic osteoarthropathy, multiple sites; E03.9 Hypothyroidism, unspecified; E66.9 Obesity, unspecified; Z68.41 Body mass index [BMI] 40.0-44.9, adult; Z87.891 Personal history of nicotine dependence; Z88.8 Allergy status to other drugs, medicaments and biological substances; Z88.2 Allergy status to sulfonamides; Z79.899 Other long term (current) drug therapy; W18.00XA Striking against unspecified object with subsequent fall, initial encounter
CPT/HCPCS: 72110; 72220; 99283-25

== ENCOUNTER 2020-03-23 18:26 | Emergency (ER) | payer OTHER ==
[2020-03-23 18:46] VITALS: BP 123/78; PULSE 70
[2020-03-23] MEDS ORDERED: Bacitracin/Neomycin/Polymyxin B Oint 0.9 GM U/D Packet ONE (19:36)
--- NOTE | 2020-03-23 19:47 | EDM.PDOC ---
ED HPI GENERAL MEDICAL PROBLEM - General Chief Complaint: Laceration Stated Complaint: laceration Time Seen by Provider: 03/23/20 19:03 Source of Information: Reports: Patient History Limitations: Reports: No Limitations - History of Present Illness INITIAL COMMENTS - FREE TEXT/NARRATIVE: Right distal finger laceration due to piece of metal at [place]. No loss of function. Tetanus is up to date. No other injuries/complaints. Treatments SOLAR MANAGER: Reports: Cold Therapy, Dressing(s) - Related Data Allergies Allergy/AdvReac Type Severity Reaction Status Date / Time ampicillin sodium Allergy Redness Verified 03/23/20 18:30 [From Unasyn] sulbactam sodium Allergy Redness Verified 03/23/20 18:30 [From Unasyn] sulfamethoxazole Allergy Redness Verified 03/23/20 18:30 [From Bactrim] trimethoprim [From Bactrim] Allergy Redness Verified 03/23/20 18:30 Home Meds: Home Meds Omeprazole 20 mg PO DAILY PRN 03/02/19 [History] Cyclobenzaprine [Flexeril] 10 mg PO TID PRN #30 tab 11/08/19 [Rx] Glucosam/Chond/Collagen/Hyalur [Glucosamine Chondroitin] 2 cap PO DAILY@1200 11/08/19 [History] Multivitamin [Daily Multiple Vitamin] 1 each PO DAILY 11/08/19 [History] busPIRone [Buspar] 30 mg PO DAILY 11/08/19 [History] Cholecalciferol (Vitamin D3) [Vitamin D3] 1,000 unit PO DAILY 03/23/20 [History] Past Medical History HEENT History: Reports: Impaired Vision Other HEENT History: He wears bifocals Cardiovascular History: Reports: Syncope, Other (See Below) Other Cardiovascular History: Near syncopal episode on 05/15/17 secondary to probable dehydration. Respiratory History: Reports: Sleep Apnea, Other (See Below) Other Respiratory History: He has been compliant with his CPAP. Benign 3 millim eter left upper lobe pulmonary nodule with additional bilateral benign granulomas by CT scan on 08/02/18. Doctors with [facility], continues to monitor yearly with imaging. Gastrointestinal History: Reports: Cholelithiasis, Colon Polyp, Gastritis, GERD, Hemorrhoids, Hiatal Hernia, PUD Other Gastrointestinal History: Upper gastric versus lower esophageal ulcer, colonic polyps of unknown type Genitourinary History: Reports: None Musculoskeletal History: Reports: Arthritis, Back Pain, Chronic, Gout, Neck Pain, Chronic, Osteoarthritis, Other (See Below) Other Musculoskeletal History: Distal phalangeal subluxation with avulsion fractions of the proximal distal phalanx and distal middle phalanx of digit #4 of the right hand with secondary mallet formation. In addition previous tendon laceration digit #3 of the left hand at age 13 resulting in a mallet formation of the distal phalanx. 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 Neurological History: Reports: Headaches, Chronic, Migraines, Other (See Below) Other Neuro History: Tension headaches Psychiatric History: Reports: Addiction, Anxiety, Depression, Psych Hospitalization(s), PTSD Other Psychiatric History: Previous alcohol abuse with illicit drug use as below with previous alcohol treatment, PTSD from service Endocrine/Metabolic History: Reports: Hypothyroidism, Obesity/BMI 30+ Other Endocrine/Metabolic History: Previous hypothyroidism with no current treatment Hematologic History: Reports: None Immunologic History: Reports: None Oncologic (Cancer) History: Reports: None Dermatologic History: Reports: None - Infectious Disease History Infectious Disease History: Reports: Chicken Pox, Influenza - Past Surgical History Head Surgeries/Procedures: Reports: None HEENT Surgical History: Reports: Oral Surgery, Other (See Below) Other HEENT Surgeries/Procedures: Multiple previous teeth extractions. Cardiovascular Surgical History: Reports: None Respiratory Surgical History: Reports: None GI Surgical History: Reports: Cholecystectomy, Colonoscopy, Polypectomy, Other (See Below) Other GI Surgeries/Procedures: Last colonoscopy at [facility] [place] in 2016 with previous Colonoscopy in about 2010 with polypectomy of unknown type. Laparoscopic cholecystectomy in 2004. Hemorrhoidectomy with colonoscopy in 2009 as above. Male Surgical History: Reports: Circumcision, Other (See Below) Other Male Surgeries/Procedures: Circumcision as an . Endocrine Surgical History: Reports: None Neurological Surgical History: Reports: None Musculoskeletal Surgical History: Reports: None Oncologic Surgical History: Reports: None Dermatological Surgical History: Reports: None - Past Imaging History Past Imaging History: Reports: Carotid US (05/22/17), CAT Scan (CT scan of the chest with contrast on 08/02/18 with findings as above. CT of the head on 05/22/17.), Sleep Study (Last sleep study in 2010), Stress Testing (2011), Ultrasound (Soft tissue ultrasound of the right wrist on 08/31/17.) Social & Family History - Family History Family Medical History: Noncontributory - Tobacco Use Smoking Status *Q: Former Smoker Used Tobacco, but Quit: Yes Month/Year Tobacco Last Used: 1989 - Caffeine Use Caffeine Use: Reports: Coffee, Soda - Recreational Drug Use Recreational Drug Use: No - Living Situation & Occupation Living situation: Reports: (2004 to second with 2 children from this marriage.), (First marriage ended in divorce with 6 children from that marriage), with Family 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) ED ROS GENERAL - Review of Systems Review Of Systems: See Below Musculoskeletal: Denies: Joint Pain Skin: Reports: Wound Neurological: Reports: No Symptoms ED EXAM, SKIN/RASH Exam: See Below Exam Limited By: No Limitations General Appearance: Alert, WD/WN, No Apparent Distress Eye Exam: Bilateral Eye: EOMI, PERRL Ears: Hearing Grossly Normal Throat/Mouth: Normal Lips, Normal Voice, No Airway Compromise Head: Atraumatic, Normocephalic Neck: Supple Respiratory/Chest: No Respiratory Distress Extremities: Normal Range of Motion, Normal Capillary Refill Neurological: Alert, Oriented, Normal Gait, No Motor/Sensory Deficits Psychiatric: Normal Affect, Normal Mood Skin: Warm, Other (laceration dorsal aspect index finger on right) ED SKIN PROCEDURES - Laceration/Wound Repair Right Distal Dorsal Digit - 2nd (Index) Appearance: Subcutaneous, Irregular (flap like) Distal NVT: Neuro & Vascular Intact, No Tendon Injury Anesthetic Type: Digital Local Anesthesia - Lidocaine (Xylocaine): 1% Plain Local Anesthetic Volume: 3cc Skin Prep: Providone-Iodine (Betadine) Exploration/Debridement/Repair: Wound Explored, In a Bloodless Field, Explored to Base, No Foreign Material Found Closed with: Sutures Lac/Wound length In cm: 4 (u-shaped avulsion flap noted) Suture Size: 4-0 # of Sutures: 4 Suture Type: Nylon, Simple Sterile Dressing Applied: Nurse Tetanus Status Addressed: Yes Complications: No Course - Vital Signs Last Recorded V/S: Last Vital Signs Temp 35.7 C L 03/23/20 18:41 Pulse 70 03/23/20 18:41 Resp 14 03/23/20 18:41 BP 123/78 03/23/20 18:41 Pulse Ox 98 03/23/20 18:41 - Orders/Labs/Meds Meds: Medications Discontinued Medications Generic Name Dose Route Start Last Admin Trade Name No PRN Reason Stop Dose Admin Lidocaine HCl 5 ml 03/23/20 19:03 03/23/20 19:08 Xylocaine-Mpf 1% INJECT 03/23/20 19:04 5 ml ONETIME ONE Administration Neomycin/Polymyxin/Bacitracin Confirm 03/23/20 19:36 Triple Antibiotic Oint Administered 03/23/20 19:37 Dose 1 each .ROUTE .STK-MED ONE - Re-Assessments/Exams Free Text/Narrative Re-Assessment/Exam: 03/23/20 19:51 Laceration repaired. Wound care reviewed/precautions reviewed. Departure - Departure Time of Disposition: 19:42 Disposition: Home, Self-Care 01 Condition: Good Clinical Impression: Laceration of index finger Qualifiers: Encounter type: initial encounter Damage to nail status: without damage Foreign body presence: without foreign body Laterality: right Qualified Code(s): S61.210A - Laceration without foreign body of right index finger without damage to nail, initial encounter - Discharge Information *PRESCRIPTION DRUG MONITORING PROGRAM REVIEWED*: Not Applicable *COPY OF PRESCRIPTION DRUG MONITORING REPORT IN PATIENT [facility]: Not Applicable Instructions: Sutures, [place], or Adhesive Wound Closure, [id number] Referrals: Karime Aly PA [Primary Care Provider] - Forms: ED Department Discharge Additional Instructions: Keep finger dressing in place until Thursday morning. OK to remove at that time. Apply topical antibiotic ointment twice daily/keep area clean/cover with nonstick pad/dressing. Sutures out next Thursday or following Thursday. Follow up as needed if any signs of infection develop. Sepsis Event Note (ED) - Evaluation Sepsis Screening Result: No Definite Risk - Focused Exam Vital Signs: Vital Signs Temp Pulse Resp BP Pulse Ox 03/23/20 18:41 35.7 C L 70 14 123/78 98
== END 2020-03-23 19:51 | disposition home or self-care (01) ==
LOC: LL.ED 18:26
DX: S61.210A Laceration without foreign body of right index finger without damage to nail, initial encounter (principal); K21.9 Gastro-esophageal reflux disease without esophagitis; F41.9 Anxiety disorder, unspecified; F32.9 Major depressive disorder, single episode, unspecified; E03.9 Hypothyroidism, unspecified; E66.9 Obesity, unspecified; Z68.37 Body mass index [BMI] 37.0-37.9, adult; Z87.891 Personal history of nicotine dependence; Z88.1 Allergy status to other antibiotic agents; Z88.2 Allergy status to sulfonamides; Z79.899 Other long term (current) drug therapy; W26.8XXA Contact with other sharp object(s), not elsewhere classified, initial encounter
CPT/HCPCS: 12002; 99282; J2001